=== PATIENT | female | born 1985 | race Caucasian/White ===

== ENCOUNTER 2017-01-27 12:23 | Emergency (ER) | payer OTHER ==
[~2017-01-27 12:23] MED LIST: ALPRAZOLAM PO; AMOXICILLIN500 M1 PO; BROMPHED PO; BUSPAR; CIPRO; CIPRO PO; DELTASONE20 MG PO; FLOXIN10 M1; FLOXIN10 M1 OU; IBUPROFEN PO; KLONOPIN1 MG; LEVAQUIN750 MG PO; NAPHCON-A EYE D15 M1 OU; NEURONTIN PO; PEN-VEE K PO; PHENERGAN25 MG PO; PRENATAL VITAMI1 TA3 PO; PYRIDIUM100 MG PO; SEROQUEL; ULTRAM PO; VICODIN PO; ZOFRAN ODT4 MG PO; ZOLOFT PO; ZOLOFT100 MG
[2017-01-27 13:06] LABS: BASOPHIL# 0.1 X10e3 (0-0.3); BASOPHIL% 0.8 % (0-2.5); EOSINOPHIL# 0.1 X10e3 (0-0.7); EOSINOPHIL% 1.2 % (0.0-7.0); HEMATOCRIT 40.9 % (35.0-45.0); HEMOGLOBIN 13.9 gm/dL (12.0-16.0); LYMPHOCYTE# 1.5 X10e3 (1.0-3.5); LYMPHOCYTE% 21.8 % (17.0-45.0); MEAN CELL VOLUME 90.6 FL (83-96); MEAN CORPUSCULAR HEMOGLOBIN 30.8 PG (28-34); MEAN PLATELET VOLUME 9.2 FL (6.5-11.5); MONOCYTE# 0.7 X10e3 (0-1.0); MONOCYTE% 9.6 % (3.0-12.0); NEUTROPHIL# 4.7 X10e3 (1.5-7.1); NEUTROPHIL% 66.6 % (40-75); PLATELET COUNT 262 X10e3 (140-420); RED BLOOD COUNT 4.52 X10e (3.90-5.30); RED CELL DISTRIBUTION WIDTH 12.7 % (11.0-15.5)
[2017-01-27 13:07] LABS: DIFF IND NO
[2017-01-27 13:28] LABS: ALBUMIN SERUM 4.4 g/dL (3.5-5.0); ALKALINE PHOSPHATASE 36 U/L (32-92); ALT (SGPT) 20 U/L (10-40); AST (SGOT) 20 U/L (10-42); BILIRUBIN,TOTAL 0.3 mg/dL (0.2-2.0); BLOOD UREA NITROGEN 9 mg/dL (9-23); CALCIUM SERUM 8.7 mg/dL (8.4-10.2); CARBON DIOXIDE 20 mmol/L (22-31); CHLORIDE 109 mmol/L (100-111); GLOM FILT RATE Estimated 74.5 mL/min (>60); GLUCOSE FASTING 98 mg/dL (70-110); LIPASE 41 U/L (22-51); POTASSIUM 3.2 mmol/L (3.5-5.1); PROTEIN TOTAL SERUM 7.1 g/dL (6.0-8.3); SODIUM 137 mmol/L (135-145)
[2017-01-27 13:29] LABS: BILIRUBIN, DIRECT <0.1 mg/dL (0.0-0.2); BILIRUBIN,INDIRECT 0.2 mg/dL (0.0-0.9)
== END 2017-01-27 14:04 | disposition home or self-care (01) ==
LOC: SED 12:23
PROVIDERS: Emergency Medicine
DX: R10.13 Epigastric pain (principal); E87.6 Hypokalemia; Z88.2 Allergy status to sulfonamides
CPT/HCPCS: 36415; 80048; 80076; 83690; 85025; 96374; 96375; 99284; C9113; J2405